=== PATIENT | female | born 1975 | race American Indian/Alaskan Native ===

== ENCOUNTER 2019-11-26 17:35 | Emergency (ER) | payer OTHER ==
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
[2019-11-26] MEDS ORDERED: IBUPROFEN 800 MG TAB PO ONE (22:28)
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
[2019-11-27 01:53] VITALS: BP 148/74
== END 2019-11-27 01:51 | disposition home or self-care (01) ==
LOC: ED 17:35
DX: S13.4XXA Sprain of ligaments of cervical spine, initial encounter (principal); S39.012A Strain of muscle, fascia and tendon of lower back, initial encounter; Z79.1 Long term (current) use of non-steroidal anti-inflammatories (NSAID); Z79.899 Other long term (current) drug therapy; V49.49XA Driver injured in collision with other motor vehicles in traffic accident, initial encounter; Y93.89 Activity, other specified; Y92.488 Other paved roadways as the place of occurrence of the external cause; Y99.8 Other external cause status
CPT/HCPCS: 72040; 72100